=== PATIENT | female | born 1990 | race Caucasian/White ===

== ENCOUNTER 2017-11-26 19:14 | Emergency (ER) | payer MEDICAID ==
--- NOTE | 2017-11-26 20:22 | EDPHY ---
H & P Time Seen by Provider: 11/26/17 19:49 HPI/ROS: CHIEF COMPLAINT: Sore throat HISTORY OF PRESENT ILLNESS: Patient is a 27-year-old female who presents emergency department with tonsillar swelling sore throat. Patient's symptoms started on Saturday. She has had a progressively worsening sore throat. She states the left is slightly worse than the right. She has had difficulty swallowing due to pain. Patient reports chills but no fever. Patient felt as though was difficult to breathe when she laid back but that is improving. She has no respiratory distress at this time. No rash. REVIEW OF SYSTEMS: 10 systems were reveiwed and are negative with the exception of the elements mentioned in the history of present illness. Past Medical/Surgical History: Includes mononucleosis, atrial septal defect Smoking Status: Never smoked Physical Exam: Vitals noted. 37.2 GENERAL: No acute distress, alert. HEENT: Eyes normal to inspection. Moist mucous membranes. The patient has pharyngeal erythema. There is bilateral pus discharge. Patient's uvula is midline. There is slight asymmetry with the left greater than the right. There is no clear area of fluctuance. NECK: Bilateral anterior lymphadenopathy, supple. No stridor RESPIRATORY: Clear to auscultation bilaterally, no rales, rhonchi or wheezing. CVS: Regular rate and rhythm, no rubs, murmurs, or gallops. ABDOMEN: Soft, nontender, nondistended, no organomegaly. BACK: Normal to inspection, no CVA tenderness. SKIN: Normal color, no rash, warm, dry. No pallor. EXTREMITIES: No pedal edema, no joint swelling. NEURO/PSYCH: Alert and oriented, normal mood and affect. No obvious cranial nerve deficit. Constitutional: Initial Vital Signs Temperature (C) 37.2 C 11/26/17 19:27 Heart Rate 99 11/26/17 19:27 Respiratory Rate 18 11/26/17 19:27 Blood Pressure 120/78 11/26/17 19:27 O2 Sat (%) 97 11/26/17 19:27 O2 Delivery Mode Room Air Allergies/Adverse Reactions: codeine Allergy (Verified 11/26/17 19:27) Medical Decision Making ED Course/Re-evaluation: In the emergency department I discussed possible etiologies with the patient. Answered all her questions. This time I do not feel she needs I&D. I discussed this at length with the patient. Patient was given a dose of prednisone and Augmentin in the emergency department. She was given prescription for both these medications. She is given a take-home pack of [place]. I discussed case with Dr. Tee from ENT. He will recheck the patient tomorrow. Patient was given warnings prior to leaving. Differential Diagnosis: My differential includes but is not limited to pharyngitis, peritonsillar abscess, retropharyngeal abscess, bacteremia, sepsis, mononucleosis - Data Points Laboratory Results: 11/26/17 19:55 Group A Strep Screen Pending Departure - Departure Disposition: Home, Routine, Self-Care Clinical Impression: Acute pharyngitis Qualifiers: Pharyngitis/tonsillitis etiology: unspecified etiology Qualified Code(s): J02.9 - Acute pharyngitis, unspecified Condition: Good Instructions: Pharyngitis (ED) Additional Instructions: I spoke with Dr. Tee on the phone from ENT. Call his office in the morning to make an appointment for recheck. Fill your prescription and take your entire course of antibiotics. Referrals: Ann-Marie Cunha MD [Primary Care Provider] - As per Instructions Tutu Tee MD [Medical Doctor] - 1 day without fail
[2017-11-26] MEDS ORDERED: predniSONE 20 MG TAB PO ONE (20:24)
[2017-11-26 20:44] VITALS: BP 119/70
== END 2017-11-26 20:43 | disposition home or self-care (01) ==
DX: J02.9 Acute pharyngitis, unspecified (principal)
CPT/HCPCS: J7512

== ENCOUNTER 2017-11-28 21:12 | Emergency (ER) | payer MEDICAID ==
--- NOTE | 2017-11-28 21:52 | EDPHY ---
H & P Stated Complaint: L side abscess in mouth, "noticed pus", seen 2days ago Time Seen by Provider: 11/28/17 21:51 HPI/ROS: HPI: This is a 27-year-old female who presents with Chief Complaint: L side abscess in mouth, "noticed pus", seen 2days ago Location: Left tonsil Quality: White pus Duration: 2 days Signs and Symptoms: no fever, no nausea, no vomiting, no diarrhea, no urinary symptoms, no chest pain, no shortness of breath, no wheezing, no cough, improved sore throat, no neck stiffness, no joint pain, no swollen glands, no ear pain, no rash Timing: Improving Severity: Mild Context: Patient was seen in this emergency room on 11/26/2017 for tonsillitis/ pharyngitis. She was started on Augmentin and prednisone burst. Yesterday she was seen by Dr. Tee and treatment course continued. This morning she woke up and noticed white pus on her left tonsil. She reports that she feels better this morning is able to open up her mouth and actually drink fluids and eat soft food. She is requesting for her left tonsil to be looked at. Denies any drooling, dysphonia, trismus, fever. LMP 2-3 weeks ago. Modifying Factors: Augmentin, prednisone Comment: ROS: A comprehensive 10 system review of systems is otherwise negative aside from elements mentioned in the history of present illness. MEDICAL/SURGICAL/SOCIAL HISTORY: Medical history: Bacon, Atrial septal defect, LMP 2-3 weeks ago. Surgical history: Denies Social history: Never smoked. Family history noncontributory. CONSTITUTIONAL: Polite and cooperative adult white female awake and alert, no obvious distress HEENT: Atraumatic and normocephalic, PERRL, EOMI. Nares patent; no rhinorrhea; no nasal mucosal edema. Tympanic membranes clear. Oropharynx clear, tonsils 1 + hypertrophy; no tonsillar erythema; left tonsil in the pillar shows white exudate, uvula midline and moist pink mucosa. Airway patent. No lymphadenopathy. No meningismus. Cardiovascular: Normal S1/S2, regular rate, regular rhythm, without murmur rub or gallop. PULMONARY/CHEST: Symmetrical and nontender. Clear to auscultation bilaterally. Good air movement. No accessory muscle usage. ABDOMEN: Soft, nondistended, nontender, no rebound, no guarding, no peritoneal signs, no masses or organomegaly. No CVAT. EXTREMITIES: 2/2 pulses, strength 5/5, no deformities, no clubbing, no cyanosis or edema. NEUROLOGICAL: no focal neuro deficits. GCS 15. Speech normal. SKIN: Warm and dry, no erythema. no rash. Good capillary refill. Source: Patient Exam Limitations: No limitations - Personal History LMP (Females 10-55): 22-28 Days Ago Current Tetanus Diphtheria and Acellular Pertussis (TDAP): Yes - Medical/Surgical History Hx Asthma: No Hx Chronic Respiratory Disease: No Hx Diabetes: No Hx Cardiac Disease: No Hx Renal Disease: No Hx Cirrhosis: No Hx Alcoholism: No Hx HIV/AIDS: No Hx Splenectomy or Spleen Trauma: No Other PMH: Bacon, Atrial septal defect - Social History Smoking Status: Never smoked Constitutional: Initial Vital Signs Temperature (C) 36.4 C 11/28/17 21:14 Heart Rate 92 11/28/17 21:14 Respiratory Rate 18 11/28/17 21:14 Blood Pressure 138/81 H 11/28/17 21:14 O2 Sat (%) 96 11/28/17 21:14 O2 Delivery Mode Room Air Allergies/Adverse Reactions: codeine Allergy (Verified 11/28/17 21:14) Home Medications: Medication Instructions Recorded Amoxicillin/Clavulanate Pot 875 mg PO BID 10 Days tab 11/26/17 [Augmentin 875 mg tab] Hydrocodone/APAP 5/325 [[place] 1 - 2 tab PO Q4 #13 tab 11/26/17 5/325 (RX)] predniSONE 20 mg PO DAILY 4 Days tab 11/26/17 Medical Decision Making ED Course/Re-evaluation: Vital signs reviewed and stable upon arrival. No tonsillar abscess, post pharyngeal abscess, respiratory distress, airway compromise appreciated. Patient actually has exudate on her left tonsil Patient's symptoms are improving. Chart review shows Strep test and throat culture are negative. Advised patient to continue course of Augmentin and prednisone. This patient was seen under the supervision of my secondary supervising physician. I evaluated care for this patient independently. Discussed this patient with Dr. Palmer. Differential Diagnosis: Differential diagnosis includes but is not limited to strep tonsillitis, postpharyngeal abscess, Jalil's angina. Departure - Departure Disposition: Home, Routine, Self-Care Clinical Impression: Tonsillitis with exudate Condition: Good Instructions: Tonsillitis (ED) Additional Instructions: Continue to take antibiotics and steroids as directed. Take Tylenol 650 mg every 4 hours and/or Ibuprofen 600 mg every 8 hours with food as needed for pain. Consume a minimum of 8-10 glasses of water or electrolyte fluid replacement drinks that include Gatorade, Powerade, Pedialyte. Eat a bland diet for the next 48 hours and then slowly advance as tolerated. Follow-up with ENT if there are any worsening symptoms or concerns. Referrals: Ann-Marie Cunha MD [Primary Care Provider] - As per Instructions Tutu Tee MD [Medical Doctor] - As per Instructions
[2017-11-28 22:41] VITALS: BP 135/92
== END 2017-11-28 22:44 | disposition home or self-care (01) ==
DX: J03.90 Acute tonsillitis, unspecified (principal)